=== PATIENT | male | born 1975 ===

== ENCOUNTER 2019-05-22 05:53 | Day surgery (SDC) | payer BC ==
[2019-05-22] MEDS ORDERED: ANCEF/STERILE WATER 2 GM/20 ML 2 GM/20 ML SYRINGE IV NR (06:00)
[2019-05-22] MEDS ORDERED: NACL BACTERIOSTATIC INFILTRATI ONE (06:25)
[2019-05-22] MEDS ORDERED: ceFAZolin 2 GM in NACL 0.9% 100 ML IV ONE (07:00)
[2019-05-22] MEDS ORDERED: SUBLIMAZE IV PRN ×2 (07:01→07:05)
[2019-05-22] MEDS ORDERED: ZOFRAN IV PRN ×2 (07:01→07:05)
[2019-05-22] MEDS ORDERED: TYLENOL PO ONE (07:02)
--- NOTE | 2019-05-22 07:03 | Anesthesia Day of Surgery ---
Anesthesia Day of Surgery - Day of Surgery Patient Examined: Yes Patient H&P Reviewed: Yes Patient is NPO: Yes
[2019-05-22] MEDS ORDERED: TYLENOL PO NR (07:05)
--- NOTE | 2019-05-22 07:09 | Anesthesia Consultation ---
Anesthesia Consult and Med Hx Date of service: 05/22/19 - Airway Anesthetic Teeth Evaluation: Good ROM Head & Neck: Adequate Mental/Hyoid Distance: Adequate Mallampati Class: Class II Intubation Access Assessment: Good - Pre-Operative Health Status ASA Pre-Surgery Classification: ASA1 Proposed Anesthetic Plan: General Nerve Block: TAP - Pulmonary Hx Smoking: No Hx Sleep Apnea: No (BERNA PRE SCREEN LOW RISK) - Cardiovascular System Hx Hypertension: No - Other Systems Hx Cancer: No
[2019-05-22] MEDS ORDERED: TYLENOL ONE (07:17)
[2019-05-22] MEDS ORDERED: XYLOCAINE 1% 20 mL ONE (07:23)
[2019-05-22] MEDS ORDERED: MARCAINE 0.5% INFILTRATI ONE (07:23)
[2019-05-22] MEDS ORDERED: ZEMURON IV ONE (07:25)
[2019-05-22] MEDS ORDERED: DECADRON ONE ×2 (07:25→08:52)
[2019-05-22] MEDS ORDERED: XYLOCAINE MPF 2% ONE (07:25)
[2019-05-22] MEDS ORDERED: ZOFRAN ONE (07:25)
[2019-05-22] MEDS ORDERED: SUBLIMAZE ONE (07:26)
[2019-05-22] MEDS ORDERED: DIPRIVAN 10 MG/ML IV ONE (07:26)
[2019-05-22] MEDS ORDERED: LACTATED RINGERS 1,000 ML IV SCH ×2 (08:00)
[2019-05-22] MEDS ORDERED: NEURONTIN PO NR ×2 (08:00)
[2019-05-22] MEDS ORDERED: VERSED IV NR (08:00)
[2019-05-22] MEDS ORDERED: NACL 0.9% IR ONE (08:04)
[2019-05-22] MEDS ORDERED: MARCAINE-EPI 0.25%-1:200,000 INFILTRATI ONE (08:52)
--- NOTE | 2019-05-22 09:20 | Short Stay Summary ---
Short Stay Documentation Date of service: 05/22/19 - History Principal diagnosis: umbilical hernia H&P: obtained from office - Allergies and Medications Current Medications: Allergies No Known Allergies Allergy (Verified 05/16/19 15:22) Home Medications Medication Instructions Recorded Confirmed Last Taken Type No Known Home Medications [No 05/16/19 05/16/19 Unknown History Reported Home Medications] Active Medications Acetaminophen (Tylenol) 650 mg PO ONCE NR Stop: 05/22/19 16:00 Last Admin: 05/22/19 07:20 Dose: 650 mg Documented by: Celecoxib (Celebrex) 200 mg PO PREOP NR Stop: 05/22/19 16:00 Last Admin: 05/22/19 07:20 Dose: 200 mg Documented by: Fentanyl (Sublimaze) 50 mcg IV Q5MIN PRN PRN Reason: Pain , Severe (7-10) Stop: 05/22/19 20:00 Gabapentin (Neurontin) 300 mg PO PREOP NR Stop: 05/22/19 16:00 Last Admin: 05/22/19 07:20 Dose: 300 mg Documented by: Cefazolin Sodium (Ancef/Sterile Water 2 Gm/20 Ml) 2 gm in 20 mls @ 80 mls/hr IV PREOP NR Stop: 05/22/19 23:59 Lactated Ringer's (Lactated Ringers) 1,000 mls @ 125 mls/hr IV DIRECT ASHLEY Last Admin: 05/22/19 07:20 Dose: 125 mls/hr Documented by: Midazolam HCl (Versed) 2 mg IV PREOP NR Stop: 05/22/19 23:59 Last Admin: 05/22/19 07:25 Dose: 2 mg Documented by: Ondansetron HCl (Zofran) 4 mg IV ONCE PRN PRN Reason: Nausea And Vomiting Stop: 05/22/19 16:00 - Brief post op/procedure progress note Date of procedure: 05/22/19 Pre-op diagnosis: umbilical hernia Post-op diagnosis: same Procedure: robotic assisted umbilical hernia repair with mesh Anesthesia: GETA, other (GOVIND BLOCK) Findings: 1.2 CM hernia defect with incarcerated preperitoneal fat Repaired with 11 bard flat mesh Surgeon: AKBAR MENDES Heating Technician: MANNY DOBBINS Estimated blood loss: minimal Pathology: none Condition: stable - Hospital course Hospital course: Pt observed in PACU and discharged to home in stable condition when criteria met - Disposition Condition at discharge: Good Disposition: DC-01 TO HOME OR SELFCARE Short Stay Discharge Plan Activity: other (no heavy lifting. no driving if taking prescription pain medications) Diet: regular Wound: open to air, per your surgeon's advice Additional Instructions: SEE PRINTED DISCHARGE INSTRUCTIONS Follow up with: YADI CARMEN [Other] - 7 Days AKBAR MENDES DO [Staff Physician] - 14 Days Prescriptions: Ibuprofen [Motrin 800 MG tab] 800 mg PO Q8HR #30 tablet HYDROcodone/APAP 5-325 [[place] 5/325] 1 each PO Q6HR PRN #20 tablet PRN Reason: Pain , Severe (7-10)
[2019-05-22] MEDS ORDERED: TORADOL ONE (09:58)
[2019-05-22] MEDS ORDERED: NORCO 5/325 PO PRN (10:05)
[2019-05-22] MEDS ORDERED: DILAUDID ONE (10:15)
[2019-05-22] MEDS: DILAUDID IV PRN ×2 (10:15→10:25)
[2019-05-22 10:35] VITALS: BP 136/82
--- NOTE | 2019-05-22 12:13 | Post Anesthesia Evaluation ---
- Post Anesthesia Evaluation Patient Participated: Yes Airway Patent: Yes Stable Respiratory Function: Yes Nausea/Vomiting: No Temp > 96.8F: Yes Pain Manageable: Yes Adequeate Hydration: Yes Anesthesia Complications: No
--- NOTE | 2019-05-23 13:48 | Operative Report ---
PREOPERATIVE DIAGNOSIS: Umbilical hernia. POSTOPERATIVE DIAGNOSIS: Umbilical hernia. PROCEDURE: Robotic-assisted umbilical hernia repair with mesh. ANESTHESIA: General endotracheal by Anesthesia, TAP block. FINDINGS: 1.2 cm hernia defect with incarcerated preperitoneal fat, which was repaired with an 11 cm Bard flat mesh. SURGEON: Lani Vanessa DO. SIDING STAPLER: Cassie Lynch MD. ESTIMATED BLOOD LOSS: Minimal. PATHOLOGY: None. CONDITION AND DISPOSITION: The patient is stable to PACU. HISTORY OF PRESENT ILLNESS: The patient is a 44-year-old male who presented to the surgery office with complaints of a bulge at his umbilicus. His primary care doctor had evaluated him for this and sent him for an MRI with the possibility of an umbilical hernia. Upon physical examination, the patient had a reducible umbilical hernia. He elected to have this repaired. All risks, benefits, and alternatives of surgery were discussed with the patient and questions answered. Consent was obtained. PROCEDURE IN DETAIL: The patient was identified in the preoperative area, taken back to the operating room and placed on the operating table in supine position. After anesthesia was induced, bilateral arms were tucked and all bony prominences were padded. The patient's abdomen was prepped and draped in the usual sterile fashion. Timeout was performed. A small maria e incision was made in the left upper quadrant at Jang's point through which a Veress needle was inserted. The Veress needle position was confirmed using the saline drop test. The abdomen was insufflated to 15 mmHg. Once the abdomen was insufflated, a 5-mm incision was made in the right upper quadrant through which a 5 mm Optiview trocar was inserted under direct visualization. The abdomen was then inspected and there was no underlying injury to any of the abdominal structures. The Veress needle was identified and did appear to be retracted into the preperitoneal tissue. Some of the preperitoneal tissue was also insufflated. The Veress needle was removed. The umbilical hernia site was visualized and the positioning of the remaining ports was decided. An 8 mm right lower quadrant robotic trocar was placed under direct visualization as well as a 12 mm balloon trocar in the right lateral abdomen. The 5 mm right upper quadrant trocar was replaced with an 8 mm robotic trocar under direct visualization. A Ray-Gian was placed into the abdomen and the robot was then docked. A fenestrated bipolar grasper was placed in arm #2 and a monopolar scissors in arm #1 and the surgeon was transferred to the console. A preperitoneal flap was developed starting approximately 4-5 cm to the right of the defect. This was performed in an avascular plane using combination of electrocautery and blunt dissection. Once the hernia defect was encountered, all incarcerated fat was reduced as well as the hernia sac. Once all hernia contents were reduced, the hernia defect was measured at 1.2 cm. The flap was then continued on laterally to the left of the hernia in order to accommodate placement of the mesh. The pocket was checked for hemostasis, which was carefully ensured. It was then decided using 11 cm Bard flat mesh to repair the defect. The mesh was cut to size and placed down the 12 mm port along with suture material. The hernia defect was closed with a 0 V-Loc running suture. The mesh was placed at the center of the defect with adequate overlap and it was sutured into all 4 quadrants using 2-0 Vicryl interrupted sutures. The peritoneum was then reapproximated. The mesh was completely covered by peritoneum and there were no defects in the peritoneum. There was no mesh exposed to the bowel or abdominal contents. The peritoneum was reapproximated using running 3-0 V-Loc suture. The robot was then undocked and the remainder of the procedure was performed laparoscopically. The surgeon was scrubbed back in. All needles, suture material and the Ray-Gian were removed under direct visualization. The 12 mm balloon trocar was removed and the fascia was closed with interrupted 0 Vicryl sutures using the Shaka-Claudette device. The abdomen was then desufflated and the remaining ports were removed. Skin incisions were closed with 4-0 Monocryl subcuticular stitches and skin glue. A 4 x 4 gauze was placed into the umbilicus and covered with a Tegaderm dressing. An abdominal binder was applied. At the end of the case, all sponge, instrument, sharp counts were correct x 2. The patient was awoken from anesthesia, extubated, and taken to PACU in stable condition. JOB# [id number] NK/NTS
== END 2019-05-22 11:10 | disposition home or self-care (01) ==
LOC: OR 05:53 → EDBD 07:30 → OR 11:10
PROVIDERS: ATTEND Surgery
DX: K42.0 Umbilical hernia with obstruction, without gangrene (principal); Z79.899 Other long term (current) drug therapy
CPT/HCPCS: 49653; 64488; C1781; J0690; J1100; J1170; J1885; J2250; J2405; J2704; J3010; J7120; S2900